=== PATIENT | female | born 1985 | race Two or more races ===

== ENCOUNTER → 2018-06-22 | Outpatient (CLI) | payer OTHER | END | disposition home or self-care (01) | LOC: CFH 08:48 | DX: R59.1 Generalized enlarged lymph nodes (principal); J02.9 Acute pharyngitis, unspecified | CPT/HCPCS: 76536 ==

== ENCOUNTER → 2020-08-05 | Outpatient (CLI) | payer OTHER | END | disposition home or self-care (01) | LOC: CVU 07:58 | PROVIDERS: ATTEND Registered Nurse | DX: I08.8 Other rheumatic multiple valve diseases (principal); I63.81 Other cerebral infarction due to occlusion or stenosis of small artery | CPT/HCPCS: 93306 ==

== ENCOUNTER → 2020-08-13 | Outpatient (CLI) | payer OTHER ==
[~2020-08-13] MED LIST: GADOTERATE 7.5 MMOL/15ML SYR ONE; OMNIPAQUE 350 MG/ML, 100ML BOTTLE ONE
== END | disposition home or self-care (01) ==
LOC: CFH 14:08
PROVIDERS: ATTEND Registered Nurse
DX: I63.81 Other cerebral infarction due to occlusion or stenosis of small artery (principal)
CPT/HCPCS: 70498; 70553; A9575; Q9967

== ENCOUNTER 2021-01-21 09:47 | Day surgery (SDC) | payer OTHER ==
[~2021-01-21] VITALS: Ht 160 cm; Wt 58.2 kg
[2021-01-21] MEDS ORDERED: FREM225A SQ (10:20)
[2021-01-21 10:23] VITALS: BP 120/82
[2021-01-21] MEDS ORDERED: ACETAMINOPHEN PO (10:23)
[2021-01-21] MEDS ORDERED: RIME75TA SL (10:23)
[2021-01-21] MEDS ORDERED: BUTALBITAL PO (10:23)
[2021-01-21] MEDS ORDERED: SODIUM CHLORIDE 0.9% 1,000 ML IV SCH (10:30)
[2021-01-21] MEDS ORDERED: PROPOFOL 10 MG/ML, 20ML ONE (11:47)
== END 2021-01-21 13:55 | disposition home or self-care (01) ==
LOC: CACL 09:47
PROVIDERS: ATTEND Internal Medicine Cardiovascular Disease
DX: I63.9 Cerebral infarction, unspecified (principal); F12.10 Cannabis abuse, uncomplicated; G43.109 Migraine with aura, not intractable, without status migrainosus; Z20.822 Contact with and (suspected) exposure to COVID-19; Z79.899 Other long term (current) drug therapy; Z88.8 Allergy status to other drugs, medicaments and biological substances
CPT/HCPCS: 87635; 93312; 93321; 93325; J2704